=== PATIENT | female | born 1970 | race Caucasian/White ===

== ENCOUNTER 2017-07-09 16:02 | Emergency (ER) | payer SELFPAY ==
[~2017-07-09] VITALS: Ht 167.6 cm; Wt 79.2 kg
[2017-07-09] MEDS ORDERED: FLUORESCEIN OPHTHALMIC 1 MG STRIP EACHEYE ONE (17:00)
[2017-07-09] MEDS ORDERED: PROPARACAINE OPHTH 0.5%, 15ML ONE (17:00)
[2017-07-09] MEDS ORDERED: FLUORESCEIN OPHTHALMIC 1 MG STRIP ONE (17:00)
[2017-07-09 17:35] VITALS: BP 179/96
== END 2017-07-09 17:37 | disposition home or self-care (01) ==
LOC: ED 17:31
DX: S05.01XA Injury of conjunctiva and corneal abrasion without foreign body, right eye, initial encounter (principal); H10.021 Other mucopurulent conjunctivitis, right eye; X58.XXXA Exposure to other specified factors, initial encounter; Y93.89 Activity, other specified; Y99.8 Other external cause status; Y92.009 Unspecified place in unspecified non-institutional (private) residence as the place of occurrence of the external cause
CPT/HCPCS: 99283